=== PATIENT | male | born 1945 | race Caucasian/White ===

== ENCOUNTER 2020-11-22 07:36 | Day surgery (SDC) | payer MEDICARE ==
[2020-11-22] MEDS ORDERED: Acetaminophen650 M1 PO (09:38)
[2020-11-22] MEDS ORDERED: ENOX40I SC (09:38)
[2020-11-22] MEDS ORDERED: ONDA4 PO (09:39)
[2020-11-22] MEDS ORDERED: OXAYDO5 M1 PO (09:39)
[2020-11-22] MEDS ORDERED: SENNA LAXATIVE8.6 MG PO (09:42)
[2020-11-22] MEDS ORDERED: WARF6 PO (09:42)
[2020-11-22] MEDS ORDERED: ALLO300 PO (09:43)
[2020-11-22] MEDS ORDERED: TRAM50 PO (09:43)
[2020-11-22] MEDS ORDERED: AMLO10 PO (09:44)
[2020-11-22] MEDS ORDERED: CENTRUM SILVER1 EAC2 PO (09:44)
[2020-11-22] MEDS ORDERED: THERA-D2000 UNIT PO (09:57)
[2020-11-22] MEDS ORDERED: Voltaren100 GM TOP (09:57)
[2020-11-22] MEDS ORDERED: PRILOSEC OTC20 MG PO (09:58)
[2020-11-22] MEDS ORDERED: Ativan1 MG PO (09:58)
[2020-11-22] MEDS ORDERED: TAMS.4ER PO (09:58)
--- NOTE | 2020-11-22 12:03 | NUR ---
INR RESULTS FAXED TO DR HANSON FOR COUMADIN DOSING PER MD ALVARADO
--- NOTE | 2020-11-22 15:08 | NUR ---
REVIEWED INR AND MEDICATION DOSING WITH BREANN IRIZARRY FOR DR HANSON'S OFFICE. NEW ORDERS GIVEN. PT CALLED AND UPDATED ON NEW ORDERS. PT VERBALIZED UNDERSTANDING. WILL REVIEW PLAN WITH PT TOMORROW AM.
== END 2020-11-22 09:10 | disposition home or self-care (01) ==
LOC: ATC 07:36
DX: M16.11 Unilateral primary osteoarthritis, right hip (principal); F41.1 Generalized anxiety disorder; I10 Essential (primary) hypertension; E11.9 Type 2 diabetes mellitus without complications; G89.29 Other chronic pain; K21.9 Gastro-esophageal reflux disease without esophagitis; I48.91 Unspecified atrial fibrillation; Z79.01 Long term (current) use of anticoagulants; Z79.899 Other long term (current) drug therapy
CPT/HCPCS: 36416; 85610; 96372; J1650

== ENCOUNTER 2020-11-23 07:49 | Day surgery (SDC) | payer MEDICARE ==
[~2020-11-23 07:49] MED LIST: ALLO300 PO; AMLO10 PO; Acetaminophen650 M1 PO; Ativan1 MG PO; CENTRUM SILVER1 EAC2 PO; ENOX40I SC; ONDA4 PO; OXAYDO5 M1 PO; PRILOSEC OTC20 MG PO; SENNA LAXATIVE8.6 MG PO; TAMS.4ER PO; THERA-D2000 UNIT PO; TRAM50 PO; Voltaren100 GM TOP; WARF6 PO
--- NOTE | 2020-11-23 13:29 | NUR ---
PT VERY PAINFULL FROM WALKING UP STAIRS AT HOME. PT STATES THIS LAB VALUE AND TEST ARE GOING TO KILL HIM AND HE WONT DO IT. I EXPLAINED TO AND PT THAT HE NEEDED TO HAVE THIS INR DAILY UNTIL HIS COUMADIN IS THERAPEUTIC LEVEL. EXPLAINED TO AND PT THAT THEY NEED TO CALL DR HANSON AND TALK TO HIS ENVIRONMENTAL REMEDIATION SPECIALIST ABOUT HIS INR. GAVE A COPY OF NEW ORDER. TRIED TO CALL [facility] TO CHECK ON IF THEY DO FINGERSTICK INR'S. COULD NOT SPEAK TO ANYONE THEY WERE IN A MEETING.
--- NOTE | 2020-11-25 11:53 | NUR ---
Spoke with pt (Alden - [phone]) , Denita CRAINmanager home improvement ([phone]), Shante nuñez tech at [facility] lab draw site at [place] ([phone]) and Sally from the outpatient lab draw site specialist at [place]. Per Salyl, the orders they have will work for pt to receive an outpatient fingerstick INR lab draw. They are standing orders and they will give pt his result at the time of the draw. Pt will have fingerstick INR at outpatient lab today and tomorrow. If he is not therapeutic by tomorrow, he will come to the [facility] on Sunday and Sunday this weekend at 3 pm for fingerstick INR. Pt is taking lovenox BID at home until therapeutic. Updated Denita [employer]IN[employer] home improvement. Per Shante, pt's INR was 1.7 yesterday. Updated Alden with plan and her verbalizes understanding.
== END 2020-11-23 12:11 | disposition home or self-care (01) ==
LOC: ATC 07:49
DX: M16.11 Unilateral primary osteoarthritis, right hip (principal); F41.1 Generalized anxiety disorder; I10 Essential (primary) hypertension; E11.9 Type 2 diabetes mellitus without complications; K21.9 Gastro-esophageal reflux disease without esophagitis; F41.9 Anxiety disorder, unspecified; Z79.84 Long term (current) use of oral hypoglycemic drugs; Z79.01 Long term (current) use of anticoagulants; Z79.899 Other long term (current) drug therapy
CPT/HCPCS: 36416; 85610; 99211

== ENCOUNTER 2020-11-28 00:22 | Day surgery (SDC) | payer MEDICARE ==
[2020-11-28 16:31] LABS: International Normalized Ratio 1.34; Prothrombin Time Results 14.1 Sec (9.7-11.5)
== END 2020-11-28 15:33 | disposition home or self-care (01) ==
LOC: ATC 00:22
PROVIDERS: Orthopaedic Surgery
DX: M16.11 Unilateral primary osteoarthritis, right hip (principal); I10 Essential (primary) hypertension; E11.9 Type 2 diabetes mellitus without complications; I48.91 Unspecified atrial fibrillation; G47.00 Insomnia, unspecified; M54.5 Low back pain; F41.9 Anxiety disorder, unspecified; Z79.01 Long term (current) use of anticoagulants; Z79.84 Long term (current) use of oral hypoglycemic drugs
CPT/HCPCS: 36415; 85610

== ENCOUNTER → 2021-06-06 | Outpatient (CLI) | payer MEDICARE | LOC: LAB 13:14 → LAB SHORT 13:14 | DX: R30.9 Painful micturition, unspecified (principal) | CPT/HCPCS: 87086 ==